=== PATIENT | female | born 1945 | race Caucasian/White ===

== ENCOUNTER 2016-07-15 12:02 | Observation (INO) ==
[2016-07-15] MEDS ORDERED: Ipratropium/Albuterol Neb 3 ML IH ONE (12:22)
--- NOTE | 2016-07-15 12:26 | Emergency Department Note ---
Disposition Clinical Impression: Cough Chest pain Qualifiers: Chest pain type: unspecified Qualified Code(s): R07.9 - Chest pain, unspecified Dyspnea Qualifiers: Dyspnea type: unspecified Qualified Code(s): R06.00 - Dyspnea, unspecified Disposition: Admitted As Inpatient Condition: Good Referrals: Karla Calhoun DO [Primary Care Provider] - Forms: ED Satisfaction Letter Time of Disposition: 15:21 URI/Sore Throat HPI - General Chief Complaint: ED Upper Respiratory Infection Stated Complaint: cough Time Seen by Provider: 07/15/16 12:16 Source: patient, family Mode of arrival: ambulatory Limitations: no limitations Nursing Notes Reviewed: Yes Vital Signs Reviewed: Yes - History of Present Illness HPI Narrative: A 71-year-old comes in with a cough that she's had since January. Patient has been seen at the urgent care several times been treated with antibiotics without improvement. No chest x-ray has been done. Patient saw her hearing aid mechanic that she sees for arrhythmia and was prescribed a beta gary.. No history of cigarette smoking. She describes a heaviness in her chest with the symptoms and she takes aspirin for that. Pt Subjective Complaint: cough Onset (ago): month(s) (Several) Duration: constant Severity: moderate Improves with: nothing Worsens with: nothing - Related Data Home Medications Medication Instructions Recorded Confirmed Amlodipine [Norvasc] 5 mg PO QPM 06/10/16 06/10/16 Diclofenac Sodium [Voltaren] 2 gm TP QID PRN 06/10/16 06/10/16 Meclizine HCl [Bonine] 25 mg PO DAILY PRN 06/10/16 06/10/16 Metoprolol XL (24 HR) Succ [Toprol 25 mg PO HS 06/10/16 06/10/16 XL] Allergies Allergy/AdvReac Type Severity Reaction Status Date / Time No Known Allergies Allergy Verified 07/15/16 12:09 Constitutional: Denies: fever, chills, weakness, weight change Eyes: Denies: eye pain, eye discharge, vision change ENT ED: Denies: ear pain, throat pain, dental pain, hearing loss, epistaxis, congestion, dysphagia Cardiovascular: Reports: chest pain (Heaviness in her chest). Denies: palpitations, dyspnea on exertion, edema, syncope Respiratory: Reports: cough. Denies: dyspnea, wheezes, hemoptysis, stridor Gastrointestinal: Denies: abdominal pain, nausea, vomiting, diarrhea, constipation, hematemesis, melena, hematochezia Genitourinary: Denies: dysuria, frequency, hematuria, discharge Musculoskeletal: Denies: back pain, neck pain, arthralgia, myalgia Integumentary: Denies: rash, abrasion, lesions Neurological: Denies: headache, weakness, numbness, paresthesias, confusion, abnormal gait, vertigo Psychiatric: Denies: anxiety, depression, suicidal thoughts, homicidal thoughts , auditory hallucinations, visual hallucinations Endocrine: Denies: fatigue Hematological/Lymphatic: Denies: easy bleeding, easy bruising Allergic/Immunologic: Denies: facial swelling, urticaria URI PMH - Past Medical History Medical history: Reports: arthritis, atrial fibrillation, hyperlipidemia, hypertension, osteoporosis Surgical history: Reports: no surgical history, hysterectomy Psychiatric history: Reports: no psych 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: Reports: no TRIMMER O[employer]ATOR [employer] history, 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 - Social History Smoking Status: Never smoker Alcohol use: Reports: none Drug use: Reports: none Physical Exam - General Limitations: no limitations General appearance: alert, in no apparent distress - Head Head exam: atraumatic, normocephalic, normal inspection - Eye Eye exam: Present: normal appearance, PERRL, EOMI - ENT ENT exam: normal exam, normal oropharynx, mucous membranes moist - Neck Neck exam: Present: normal inspection, full ROM, trachea midline - Chest Chest inspection: Present: normal inspection, symmetric chest wall rise - Respiratory Respiratory exam: Present: normal lung sounds bilaterally - Cardiovascular Cardiovascular exam: Present: regular rate - Abdominal Exam Abdominal exam: Present: soft, Non-Tender. Absent: tenderness, distention, guarding, rebound, rigidity - Extremities Exam Extremities exam: Present: normal inspection, full ROM. Absent: tenderness, pedal edema - Expanded Lower Extremity Exam Neurovascular/Tendon exam: Absent: motor deficit, sensory deficit, tendon deficit Gait: observed and normal - Back Exam Back exam: Present: normal inspection, full ROM. Absent: tenderness - Neurological Exam Neurological exam: Present: alert, oriented X3 - Psychiatric Psychiatric exam: Present: normal affect, normal mood - Skin Skin exam: Present: warm, dry, intact, normal color Course - Reevaluation(s) Reevaluation #1: His is a lady who comes in complaining of persistent cough dyspnea and heaviness in her chest. She's been evaluated at the urgent care a couple times given antibiotics without improvement. Some cardiac workup no stress test. Time: 15:20 - Consultations Consultation #1: Discussed with Dr. Corona, admit. Time: 15:21 Vital Signs Temperature 98.3 F 07/15/16 12:10 Pulse Rate 92 07/15/16 12:10 Respiratory Rate 22 07/15/16 12:10 Blood Pressure 176/93 07/15/16 12:10 O2 Sat by Pulse Oximetry 96 07/15/16 12:10 Temperature 98.3 F 07/15/16 12:10 Pulse Rate 69 07/15/16 14:19 Respiratory Rate 18 07/15/16 14:19 Blood Pressure 141/80 07/15/16 14:19 O2 Sat by Pulse Oximetry 96 07/15/16 14:19 Oxygen Delivery Oxygen Delivery Room Air Upper Respiratory Infection - Lab Data Lab results reviewed: Yes I reviewed the patient's lab results. Result diagrams: 07/15/16 13:09 07/15/16 13:09 Lab Results 07/15/16 07/15/16 07/15/16 Range/Units 13:09 13:09 13:09 WBC 8.9 (4.3-11.1) K/mcL RBC 4.31 (3.82-4.97) M/mcL Hgb 12.6 (11.5-15.4) g/dL Hct 37.7 (35.3-44.9) % MCV 87.5 (83.0-100.0) fL MCH 29.2 (28.0-33.3) pg MCHC 33.4 (31.6-35.5) g/dL RDW 13.3 (11.5-14.5) % Plt Count 137 L (140-400) K/mcL MPV 11.7 (9.4-12.4) fL Immature Gran % 0.7 (0-4) % Seg Neutrophils % 76.3 % Lymphocytes % 14.0 % Monocytes % 7.1 % Eosinophils % 1.7 % Basophils % 0.2 % Neutrophils # 6.8 (1.6-8.9) K/mcL Lymphocytes # 1.2 (0.6-4.6) K/mcL Monocytes # 0.6 (0.0-1.3) K/mcL Eosinophils # 0.2 (0.0-0.6) K/mcL Basophils # 0.0 (0.0-0.2) K/mcL Sodium 138 (136-145) mEq/L Potassium 3.0 L (3.5-4.5) mEq/L Chloride 103 (98-109) mEq/L Carbon Dioxide 24 (19-29) mEq/L BUN 14 (7-20) mg/dL Creatinine 0.74 (0.57-1.11) mg/dL Est GFR ( Amer) > 60 (> 60) Est GFR (Non-Af Amer) > 60 (> 60) BUN/Creatinine Ratio 19 (6-26) Glucose 145 H (70-99) mg/dL Calculated Osmolality 289 (280-300) Lactic Acid 2.3 H (0.5-2.2) mmol/L Calcium 8.8 (8.6-10.8) mg/dL Troponin I (0-0.03) ng/mL B-Natriuretic Peptide (0-100) pg/mL 07/15/16 07/15/16 Range/Units 13:09 13:09 WBC (4.3-11.1) K/mcL RBC (3.82-4.97) M/mcL Hgb (11.5-15.4) g/dL Hct (35.3-44.9) % MCV (83.0-100.0) fL MCH (28.0-33.3) pg MCHC (31.6-35.5) g/dL RDW (11.5-14.5) % Plt Count (140-400) K/mcL MPV (9.4-12.4) fL Immature Gran % (0-4) % Seg Neutrophils % % Lymphocytes % % Monocytes % % Eosinophils % % Basophils % % Neutrophils # (1.6-8.9) K/mcL Lymphocytes # (0.6-4.6) K/mcL Monocytes # (0.0-1.3) K/mcL Eosinophils # (0.0-0.6) K/mcL Basophils # (0.0-0.2) K/mcL Sodium (136-145) mEq/L Potassium (3.5-4.5) mEq/L Chloride (98-109) mEq/L Carbon Dioxide (19-29) mEq/L BUN (7-20) mg/dL Creatinine (0.57-1.11) mg/dL Est GFR ( Amer) (> 60) Est GFR (Non-Af Amer) (> 60) BUN/Creatinine Ratio (6-26) Glucose (70-99) mg/dL Calculated Osmolality (280-300) Lactic Acid (0.5-2.2) mmol/L Calcium (8.6-10.8) mg/dL Troponin I 0.00 (0-0.03) ng/mL B-Natriuretic Peptide 65 (0-100) pg/mL - Radiology Data Radiology results reviewed: Yes I reviewed the patient's radiology results. Chest X-Ray 07/15/16 12:22 IMPRESSION: 1. No acute pneumonia. 2. Redemonstration of a moderate hiatal hernia which in the setting of aspiration may account for a chronic cough. D/ / 07/15/2016 13:02:15 Jad Jacobo MD / jac Interpreting Provider: Jad Jacobo MD - EKG Data EKG attestation: Yes I reviewed and interpreted this EKG. EKG shows normal: sinus rhythm Rate: normal Rhythm: NSR Interpretation: no acute changes
[2016-07-15 13:21] LABS: Basophils % 0.2 %; Eosinophils # 0.2 K/mcL (0.0-0.6); Eosinophils % 1.7 %; Hematocrit 37.7 % (35.3-44.9); Hemoglobin 12.6 g/dL (11.5-15.4); Immature Granulocytes % 0.7 % (0-4); Lymphocytes # 1.2 K/mcL (0.6-4.6); Mean Corpuscular HGB Conc 33.4 g/dL (31.6-35.5); Mean Corpuscular Hemoglobin 29.2 pg (28.0-33.3); Mean Corpuscular Volume 87.5 fL (83.0-100.0); Mean Platelet Volume 11.7 fL (9.4-12.4); Monocytes # 0.6 K/mcL (0.0-1.3); Monocytes % 7.1 %; Neutrophils # 6.8 K/mcL (1.6-8.9); Platelet Count 137 K/mcL (140-400); Red Blood Count 4.31 M/mcL (3.82-4.97); Red Cell Distribution Width 13.3 % (11.5-14.5); Segmented Neutrophils % 76.3 %
[2016-07-15 13:34] LABS: BUN/Creatinine Ratio 19 (6-26); Blood Urea Nitrogen 14 mg/dL (7-20); Calcium 8.8 mg/dL (8.6-10.8); Carbon Dioxide 24 mEq/L (19-29); Chloride 103 mEq/L (98-109); Glucose 145 mg/dL (70-99); Osmolality,Calculated 289 (280-300); Sodium 138 mEq/L (136-145); eGFR For African Americans > 60 (> 60); eGFR For Non-African Americans > 60 (> 60)
[2016-07-15] MEDS ORDERED: Naloxone 0.4 MG/ML INJ IVP PRN (17:23)
[2016-07-15] MEDS: amLODIPine 5 MG TABLET PO SCH (18:28)
--- NOTE | 2016-07-15 19:49 | Electrocardiograph Report ---
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
[2016-07-15] MEDS: Ipratropium/Albuterol Neb 3 ML IH SCH ×2 (20:19→23:34)
[2016-07-15] MEDS: Metoprolol XL (24 HR) Succ 25 MG TAB.ER.24H PO SCH (22:25)
--- NOTE | 2016-07-16 00:48 | Internal Med History&Physical ---
Date of Encounter: 07/16/16 Time of Encounter: 16:30 Internal Medicine - H&P: HPI Chief complaint: cough Admitted From: Emergency Dept Plans for Post Hospital Care: Home History of present illness: Ms. Bright is a 71 year old female with hypertension, hyperlipidemia, arthritis, osteoporosis, and atrial fibrillation presented to the emergency department with cough and weakness. She reports she has had a cough and felt sick since January. She is then to multiple urgent cares and her primary care over the last several months and had several rounds of antibiotics and steroids for diagnosis of bronchitis. She reports the cough is productive, accompanied by sinus pressure and drainage, and headache. Recently last night she has had chest heaviness accompanying her cough she feels occasional dyspnea on exertion, occasional chills. She also reports some diarrhea on and off. She denies any lightheadedness, dizziness, palpitations. Evaluation in the ED included a chest xray which showed no acute pneumonia but showed a hiatal hernia , EKG that showed normal sinus rhythm, troponin was negative at 0.0, BNP was normal at 65, lactic acid was mildly elevated at 2.3, WBC count was normal at 8.9. On exam, she is alert and oriented, in no distress. lungs are clear to auscultation, heart has irregular rhythm. (1) Chest pain Patient reporting "chest heaviness" since last night. She is associating this with her cough. EKG showed NSR, initial troponin was negative. continuous cardiac cath rn serial troponins for trend (2) Cough She has had a productive cough since January with multiple rounds of antibiotics and steroids for bronchitis. CXR shows no acute pneumonia, but does demonstrate a hiatal hernia. She is satting high 90s on room air. Chronic bronchitis vs. GERD vs. allergies. Also may consider vasculitis Will get inflammatory markers. duoneb treatments QID mucinex BID Prilosec 20mg PO daily (3) Hypokalemia Potassium of 3.0 PO potassium chloride 20mEq Recheck chemistry in the morning. (4) DVT Prophylaxis encourage ambulation anti-embolic stockings Lovenox 40mg SQ Daily Past Med Surg Social Fam HX - Past Medical History Medical history: arthritis, atrial fibrillation, hyperlipidemia, hypertension, osteoporosis Psychiatric history: no psych history - Past Surgical History Surgical History: hysterectomy - Social History Smoking Status: Never smoker Smokeless Tobacco Status: No Alcohol use: none Drug use: none - Family History Mother Hx Family Cardiac Disorders: Yes Hx Family Neurologic Disorders: Yes Father Hx Family Cardiac Disorders: Yes Hx Family Neurologic Disorders: Yes Internal Medicine - H&P: Meds Amlodipine [Norvasc] 5 mg PO QPM 06/10/16 [History] Diclofenac Sodium [Voltaren] 2 gm TP QID PRN 06/10/16 [History] Meclizine HCl [Bonine] 25 mg PO DAILY PRN 06/10/16 [History] Metoprolol XL (24 HR) Succ [Toprol XL] 25 mg PO HS 06/10/16 [History] Allergies No Known Allergies Allergy (Verified 07/15/16 12:09) All Systems PM: A 10-system review of systems was performed and is negative for pertinent findings except as documented above in the HPI. - Constitutional Constitutional: chills, no fever(s), no night sweats - EENT Eyes: no change in vision, no discharge, no pain, no photophobia Ears: no ear discharge, no ear pain, no tinnitus Nose, mouth and throat: nasal congestion, nasal discharge, sinus pain, sinus pressure - Cardiovascular Cardiovascular ROS IM: dyspnea on exertion, no chest pain, no diaphoresis, no dyspnea, no lightheadedness, no palpitations, no syncope - Respiratory Respiratory: cough, dyspnea on exertion, excessive phlegm production - Gastrointestinal Gastrointestinal: no abdominal pain, no diarrhea, no hematemesis, no hematochezia, no melena, no nausea, no vomiting - Genitourinary Genitourinary: no change in urinary stream, no dysuria, no flank pain, no hematuria - Musculoskeletal Musculoskeletal ROS IM: no numbness, no tingling - Integumentary Integumentary IM: no rash, no unusual bruising - Neurological Neurological ROS: no confusion, no convulsions, no focal weakness, no numbness, no tingling, no tremor(s) - Hematologic/Lymphatic Hematologic/Lymphatic: no easy bruising - Constitutional Vitals: Temp Pulse Resp BP Pulse Ox 99.4 F 77 16 136/70 92 L 07/16/16 00:20 07/16/16 00:20 07/16/16 00:20 07/16/16 00:20 07/16/16 00:20 General appearance: Present: A&O X 3, no acute distress - Head Head exam: Present: atraumatic, normocephalic - Eye Eye exam: Present: PERRL, conjuntiva pink, sclera anicteric Pupils: Present: PERRL - Neck Neck exam general surgery: Present: supple, trachea midline. Absent: lymphadenopathy - Respiratory Respiratory exam: Present: CTAB. Absent: accessory muscle use, rales, rhonchi, wheezes - Cardiovascular Cardiovascular exam: Present: irregular rhythm, +S1, +S2. Absent: diastolic murmur, gallop, rubs, systolic murmur - GI/Abdominal GI/Abdominal exam: Present: normal bowel sounds, soft, no peritoneal signs. Absent: distended, tenderness - Extremities Exam Extremities exam: Present: warm, radial pulses palpable and symetrical. Absent : calf tenderness, cyanotic, pedal edema - Neurological Exam Neurological exam: Present: CN II-XII intact, oriented X3, no focal deficits. Absent: facial droop, speech deficit - Skin Skin exam: Present: dry, intact Internal Med - H&P Results - Labs CBC & Chem 7: 07/16/16 01:26 07/15/16 13:09 Labs: Cardiac Enzymes 07/15/16 Range/Units 18:40 Troponin I 0.01 (0-0.03) ng/mL All Lab Results (24 Hours) 07/15/16 07/15/16 07/15/16 Range/Units 13:09 13:09 13:09 WBC 8.9 (4.3-11.1) K/mcL RBC 4.31 (3.82-4.97) M/mcL Hgb 12.6 (11.5-15.4) g/dL Hct 37.7 (35.3-44.9) % MCV 87.5 (83.0-100.0) fL MCH 29.2 (28.0-33.3) pg MCHC 33.4 (31.6-35.5) g/dL RDW 13.3 (11.5-14.5) % Plt Count 137 L (140-400) K/mcL MPV 11.7 (9.4-12.4) fL Immature Gran % 0.7 (0-4) % Seg Neutrophils % 76.3 % Lymphocytes % 14.0 % Monocytes % 7.1 % Eosinophils % 1.7 % Basophils % 0.2 % Neutrophils # 6.8 (1.6-8.9) K/mcL Lymphocytes # 1.2 (0.6-4.6) K/mcL Monocytes # 0.6 (0.0-1.3) K/mcL Eosinophils # 0.2 (0.0-0.6) K/mcL Basophils # 0.0 (0.0-0.2) K/mcL Sodium 138 (136-145) mEq/L Potassium 3.0 L (3.5-4.5) mEq/L Chloride 103 (98-109) mEq/L Carbon Dioxide 24 (19-29) mEq/L BUN 14 (7-20) mg/dL Creatinine 0.74 (0.57-1.11) mg/dL Est GFR ( Amer) > 60 (> 60) Est GFR (Non-Af Amer) > 60 (> 60) BUN/Creatinine Ratio 19 (6-26) Glucose 145 H (70-99) mg/dL Calculated Osmolality 289 (280-300) Lactic Acid 2.3 H (0.5-2.2) mmol/L Calcium 8.8 (8.6-10.8) mg/dL Troponin I (0-0.03) ng/mL B-Natriuretic Peptide (0-100) pg/mL 07/15/16 07/15/16 07/15/16 Range/Units 13:09 13:09 18:40 WBC (4.3-11.1) K/mcL RBC (3.82-4.97) M/mcL Hgb (11.5-15.4) g/dL Hct (35.3-44.9) % MCV (83.0-100.0) fL MCH (28.0-33.3) pg MCHC (31.6-35.5) g/dL RDW (11.5-14.5) % Plt Count (140-400) K/mcL MPV (9.4-12.4) fL Immature Gran % (0-4) % Seg Neutrophils % % Lymphocytes % % Monocytes % % Eosinophils % % Basophils % % Neutrophils # (1.6-8.9) K/mcL Lymphocytes # (0.6-4.6) K/mcL Monocytes # (0.0-1.3) K/mcL Eosinophils # (0.0-0.6) K/mcL Basophils # (0.0-0.2) K/mcL Sodium (136-145) mEq/L Potassium (3.5-4.5) mEq/L Chloride (98-109) mEq/L Carbon Dioxide (19-29) mEq/L BUN (7-20) mg/dL Creatinine (0.57-1.11) mg/dL Est GFR ( Amer) (> 60) Est GFR (Non-Af Amer) (> 60) BUN/Creatinine Ratio (6-26) Glucose (70-99) mg/dL Calculated Osmolality (280-300) Lactic Acid (0.5-2.2) mmol/L Calcium (8.6-10.8) mg/dL Troponin I 0.00 0.01 (0-0.03) ng/mL B-Natriuretic Peptide 65 (0-100) pg/mL
[2016-07-16 01:38] LABS: Basophils % 0.2 %; Eosinophils # 0.1 K/mcL (0.0-0.6); Eosinophils % 1.7 %; Hemoglobin 11.6 g/dL (11.5-15.4); Immature Granulocytes % 0.4 % (0-4); Lymphocytes # 1.2 K/mcL (0.6-4.6); Lymphocytes % 13.7 %; Mean Corpuscular HGB Conc 33.1 g/dL (31.6-35.5); Mean Corpuscular Hemoglobin 29.1 pg (28.0-33.3); Mean Corpuscular Volume 87.7 fL (83.0-100.0); Mean Platelet Volume 11.9 fL (9.4-12.4); Monocytes # 0.6 K/mcL (0.0-1.3); Monocytes % 7.6 %; Neutrophils # 6.5 K/mcL (1.6-8.9); Platelet Count 125 K/mcL (140-400); Red Blood Count 3.99 M/mcL (3.82-4.97); Red Cell Distribution Width 13.4 % (11.5-14.5); Segmented Neutrophils % 76.4 %
[2016-07-16 01:53] LABS: BUN/Creatinine Ratio 20 (6-26); Blood Urea Nitrogen 13 mg/dL (7-20); Calcium 8.3 mg/dL (8.6-10.8); Carbon Dioxide 27 mEq/L (19-29); Chloride 101 mEq/L (98-109); Glucose 113 mg/dL (70-99); Osmolality,Calculated 285 (280-300); Potassium 2.9 mEq/L (3.5-4.5); Sodium 137 mEq/L (136-145); eGFR For African Americans > 60 (> 60); eGFR For Non-African Americans > 60 (> 60)
[2016-07-16] MEDS: Ipratropium/Albuterol Neb 3 ML IH SCH ×6 (03:45→23:36)
--- NOTE | 2016-07-16 04:49 | Event Note ---
Date of Encounter: 07/16/16 Time of Encounter: 04:44 Patient seen and examined with nurse practitioner. Patient presents with chronic cough for about 6 months suspect it is related to hiatal hernia. Other possibilities include postnasal drip. I will start the patient on Flonase nasal spray. She has increased nasal drainage so will give augmentin. PPI will be given 1st. She will need evaluation by gastroenterology. No evidence of pneumonia on x-ray
[2016-07-16] MEDS: *HR* Enoxaparin 40 MG/0.4 ML SYRINGE SQ SCH (06:44)
[2016-07-16] MEDS: Potassium Chloride Elixir 20 MEQ/15 ML UDC PO SCH ×2 (08:10→21:15)
[2016-07-16] MEDS: Fluticasone Propionate Nasal 50 MCG/SPRAY BOTTLE NS SCH (08:11)
[2016-07-16] MEDS: GuaiFENesin/Codeine Oral Soln 5 ML UDC PO PRN (13:15)
--- NOTE | 2016-07-16 17:04 | Internal Med Progress Note ---
Date of Encounter: 07/16/16 Time of Encounter: 09:00 - Subjective Interval history: Patient is a 71-year-old female admitted for persistent cough for 3 months, on and off, and chest heaviness. Her past medical history is significant for hyperlipidemia, attention, arthritis, osteoporosis, and A. fib patient was seen and examined. She is awake alert oriented 3. Denies chest pain, denies shortness of breath, still cough without sputum. Vitals are stable. Patient has 3 sets of troponin negative. Will also obtain chest CAT scan because of the cough lasts a long time. Patient has low potassium to 2.9. We will give potassium supplement. A/P: (1) Chest heaviness Patient reporting "chest heaviness" since last night. She is associating this with her cough. EKG showed NSR, 3 sets of troponin was negative. 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 CXR shows no acute pneumonia, but does demonstrate a hiatal hernia. She is satting high 90s on room air. Chronic bronchitis vs. GERD vs. allergies. CT scan of chest results unremarkable duoneb treatments QID mucinex BID Prilosec 20mg PO daily (3) Hypokalemia Potassium of 2.9 PO potassium choride 40mEq bid Recheck chemistry in the morning. (4) DVT Prophylaxis Heparin subcutaneously - Constitutional Vitals: Temp Pulse Resp BP Pulse Ox 98.7 F 97 16 163/89 93 L 07/16/16 15:28 07/16/16 15:28 07/16/16 15:28 07/16/16 15:28 07/16/16 15:28 General appearance: Present: A&O X 3, no acute distress - Head Head exam: Present: atraumatic, normocephalic - Eye Eye exam: Present: PERRL, conjuntiva pink, sclera anicteric Pupils: Present: PERRL - Neck Neck exam general surgery: Present: supple, trachea midline. Absent: lymphadenopathy - Respiratory Respiratory exam: Present: CTAB. Absent: accessory muscle use, rales, rhonchi, wheezes - Cardiovascular Cardiovascular exam: Present: RRR, +S1, +S2. Absent: diastolic murmur, gallop, rubs, systolic murmur - GI/Abdominal GI/Abdominal exam: Present: normal bowel sounds, soft, no peritoneal signs. Absent: distended, tenderness - Extremities Exam Extremities exam: Present: warm, radial pulses palpable and symetrical. Absent : calf tenderness, cyanotic, pedal edema - Neurological Exam Neurological exam: Present: CN II-XII intact, oriented X3, no focal deficits. Absent: pronater drift, facial droop, speech deficit - Skin Skin exam: Present: dry, intact Internal Medicine: Result - Labs CBC & Chem 7: 07/16/16 01:26 07/16/16 01:26 Labs: Short CBC 07/16/16 Range/Units 01:26 WBC 8.4 (4.3-11.1) K/mcL Hgb 11.6 (11.5-15.4) g/dL Hct 35.0 L (35.3-44.9) % Plt Count 125 L (140-400) K/mcL Neutrophils # 6.5 (1.6-8.9) K/mcL BMP 07/16/16 01:26 Sodium 137 Potassium 2.9 L Chloride 101 Carbon Dioxide 27 BUN 13 Creatinine 0.64 Glucose 113 H Calcium 8.3 L Cardiac Enzymes 07/15/16 07/16/16 Range/Units 18:40 01:26 Troponin I 0.01 0.00 (0-0.03) ng/mL - Impressions Impressions Chest CT 07/16/16 11:30 IMPRESSION: No acute process within the chest. Coronary atherosclerosis. Evidence of prior granulomatous disease. D/ / 07/16/2016 12:58:58 Jacob Paulson MD / [email or web address] Interpreting Provider: Jacob Paulson MD Consult Discharge Plan - Plan Referrals: Karla Calhoun DO [Primary Care Provider] -
[2016-07-16] MEDS: amLODIPine 5 MG TABLET PO SCH (17:27)
[2016-07-16] MEDS: Metoprolol XL (24 HR) Succ 25 MG TAB.ER.24H PO SCH (21:15)
[2016-07-17] MEDS: GuaiFENesin/Codeine Oral Soln 5 ML UDC PO PRN (01:13)
[2016-07-17] MEDS: Ipratropium/Albuterol Neb 3 ML IH SCH ×4 (03:42→11:02)
[2016-07-17] MEDS: *HR* Enoxaparin 40 MG/0.4 ML SYRINGE SQ SCH (05:23)
[2016-07-17 05:27] LABS: BUN/Creatinine Ratio 17 (6-26); Blood Urea Nitrogen 12 mg/dL (7-20); Calcium 8.7 mg/dL (8.6-10.8); Carbon Dioxide 26 mEq/L (19-29); Chloride 104 mEq/L (98-109); Glucose 112 mg/dL (70-99); Osmolality,Calculated 289 (280-300); Sodium 139 mEq/L (136-145); eGFR For African Americans > 60 (> 60); eGFR For Non-African Americans > 60 (> 60)
[2016-07-17 05:46] LABS: Potassium 4.2 mEq/L (3.5-4.5)
[2016-07-17 07:54] VITALS: BP 130/70
[2016-07-17] MEDS: Fluticasone Propionate Nasal 50 MCG/SPRAY BOTTLE NS SCH (08:50)
--- NOTE | 2016-07-17 10:08 | Discharge Summary ---
Date of Encounter: 07/17/16 Time of Encounter: 09:00 - Discharge Medications Prescriptions: GuaiFENesin/Codeine [ROBITUSSIN w/CODEINE] 10 ml PO Q6HR PRN #14 udc PRN Reason: Cough GuaiFENesin ER [Mucinex] 600 mg PO BID #30 tbbp.12hr Omeprazole [PriLOSEC] 20 mg PO DAILY@0630 #30 capsule. Home Medications: Amlodipine [Norvasc] 5 mg PO DAILY 06/10/16 [History] Metoprolol XL (24 HR) Succ [Toprol Xl] 25 mg PO DAILY 06/10/16 [History] GuaiFENesin ER [Mucinex] 600 mg PO BID #30 tbbp.12hr 07/17/16 [Rx] GuaiFENesin/Codeine [ROBITUSSIN w/CODEINE] 10 ml PO Q6HR PRN #14 udc 07/17/16 [ Rx] Omeprazole [PriLOSEC] 20 mg PO DAILY@0630 #30 capsule. 07/17/16 [Rx] Allergies/Adverse Reactions: Allergies No Known Allergies Allergy (Verified 07/15/16 12:09) Procedures/tests Complete & Pending: Procedures Performed prior 72 hours Category Date Time Status CT chest w/o contrast [CT chest wo con] [CT] Routine Cat Scan 07/16/16 11:30 Draft Date of admission: 07/15/16 15:30 Primary care physician: Vahid Sellers Discharging clinician: Panda Reed Anticipated date of discharge: 07/17/16 - Patient Status Disposition: Home, Self-Care Condition: Good Functional capacity at discharge: independent ambulation Overall status at discharge: patient is back to baseline - Discharge Instructions Follow Up With: Karla Calhoun DO [Primary Care Provider] - - Diet and Activity Activity: increase activity as tolerated Diet: low salt diet Interval History: Ms. Bright is a 71 year old female with hypertension, hyperlipidemia, arthritis, osteoporosis, and atrial fibrillation presented to the emergency department with cough and weakness. She reports she has had a cough and felt sick since January. She is then to multiple urgent cares and her primary care over the last several months and had several rounds of antibiotics and steroids for diagnosis of bronchitis. She reports the cough is productive, accompanied by sinus pressure and drainage, and headache. Recently last night she has had chest heaviness accompanying her cough she feels occasional dyspnea on exertion, occasional chills. She also reports some diarrhea on and off. She denies any lightheadedness, dizziness, palpitations. Evaluation in the ED included a chest xray which showed no acute pneumonia but showed a hiatal hernia , EKG that showed normal sinus rhythm, troponin was negative at 0.0, BNP was normal at 65, lactic acid was mildly elevated at 2.3, WBC count was normal at 8.9. On exam, she is alert and oriented, in no distress. lungs are clear to auscultation, heart has irregular rhythm. Hospital course: Ms. Bright is a 71 year old female admitted for persistent cough and chest congestion. She was placed on cardiac monitoring and tracked troponin. Three sets of troponin negative. Pt denies chest pain. Chest CT was done, result unremarkable. CXR shows hiatal hernia, otherwise unremarkable. Pt is not on any ACEI. Other differential diagnosis may include postnasal drip, GERD, asthma, ect. Pt is clinically stable now, discuss with pt, she need continue to follow her PCP and may need to refer to pulmonary for chronic cough workup as outpatient. Pt verbalized understanding and agree the plan. Pt has hypokalemia on admission, which was corrected after supplement. I saw and examined pt today, she is awake, alert, oriented x 3, in no acute distress, c/o cough with minimal sputum, no fever, vitals stable, no chest pain or SOB, no nausea, no vomiting. Will D/C pt home. Prescribe cough syrup and try PPI for possible GERD since pt has hiatal hernia. Pt need to f/u with PCP as outpatient. - Time Spent with Patient Total time spent providing and/or coordinating discharge services: 40 minutes Greater than 30 minutes - Constitutional Vitals: Temp Pulse Resp BP Pulse Ox 96.6 F L 72 20 130/70 92 L 07/17/16 07:51 07/17/16 07:51 07/17/16 07:51 07/17/16 07:51 07/17/16 07:51 General appearance: Present: A&O X 3, no acute distress, answers questions appropriately - Head Head exam: Present: atraumatic, normocephalic - Eye Eye exam: Present: PERRL, conjuntiva pink, sclera anicteric Pupils: Present: PERRL - Neck Neck exam general surgery: Present: supple, trachea midline. Absent: lymphadenopathy - Respiratory Respiratory exam: Present: CTAB. Absent: accessory muscle use, rales, rhonchi, wheezes - Cardiovascular Cardiovascular exam: Present: RRR, +S1, +S2. Absent: diastolic murmur, gallop, rubs, systolic murmur - GI/Abdominal GI/Abdominal exam: Present: normal bowel sounds, soft, no peritoneal signs. Absent: distended, tenderness - Extremities Exam Extremities exam: Present: warm, radial pulses palpable and symetrical. Absent : calf tenderness, cyanotic, pedal edema - Neurological Exam Neurological exam: Present: CN II-XII intact, oriented X3, no focal deficits. Absent: pronater drift, facial droop, speech deficit - Skin Skin exam: Present: dry, intact
== END 2016-07-17 11:06 | disposition home or self-care (01) ==
LOC: 3BNU 12:02 → EMEROO 12:02 → SUATTDRO 15:30 → 3BNU 16:10
PROVIDERS: ADMIT Nurse Practitioner Family; ATTEND Internal Medicine

== ENCOUNTER 2018-11-26 16:12 | Observation (INO) ==
--- NOTE | 2018-11-26 17:02 | Emergency Department Note ---
Disposition Clinical Impression: Anemia Qualifiers: Anemia type: iron deficiency Iron deficiency anemia type: unspecified iron deficiency Qualified Code(s): D50.9 - Iron deficiency anemia, unspecified Disposition: Admitted As Inpatient Referrals: Karla Calhoun DO [Primary Care Provider] - Forms: ED Satisfaction Letter Time of Disposition: 18:39 General Adult HPI - General Chief complaint: ED Recheck/Abnormal Lab/Rx Stated complaint: Abnormal Labs Low Hemoglobin Time Seen by Provider: 11/26/18 16:35 Source: patient Limitations: no limitations Nursing Notes Reviewed: Yes Vital Signs Reviewed: Yes - History of Present Illness HPI Narrative: 73-year-old female presents emergency Department concern from her primary care provider and that she was anemic. Patient had hemoglobin of in the mid 5 range today. Patient reports ever since August, she has had increasing dyspnea on exertion. States that she has been very short of breath. Cannot walk long distances at all. It was most prominent in a recent vacation. Patient denies any hemoptysis, hematemesis, melenic stool, she does report some mild right red blood per rectum on occasion, but not consistently. Patient denies any fevers, chest pain, abdominal pain. She denies being on a blood thinning medication. She does take 81 mg aspirin daily. Pain Scale: 0 - Related Data Home Medications Medication Instructions Recorded Confirmed Metoprolol XL (24 HR) Succ [Toprol 25 mg PO DAILY 06/10/16 07/16/16 Xl] amLODIPine [Norvasc] 5 mg PO DAILY 06/10/16 07/16/16 Previous Rx's Medication Instructions Recorded GuaiFENesin ER [Mucinex] 600 mg PO BID #30 tbbp.12hr 07/17/16 GuaiFENesin/Codeine [ROBITUSSIN 10 ml PO Q6HR PRN #14 udc 07/17/16 w/CODEINE] Omeprazole [PriLOSEC] 20 mg PO DAILY@0630 #30 capsule. 07/17/16 Allergies Allergy/AdvReac Type Severity Reaction Status Date / Time No Known Allergies Allergy Verified 07/15/16 12:09 All systems ED: reviewed and negative except as stated. Review of Systems: As Per HPI Constitutional: Denies: fever Cardiovascular: Denies: chest pain Respiratory: Reports: dyspnea Gastrointestinal: Denies: abdominal pain, nausea, vomiting Genitourinary: Denies: urgency, dysuria Musculoskeletal: Denies: back pain Past Medical History - Past Medical History Attestation: Yes The following information was validated with the patient. 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 Absent: respiratory distress, accessory muscle use - Cardiovascular Cardiovascular exam: Present: regular rate, normal rhythm, normal heart sounds - Abdominal Exam Abdominal exam: Present: soft, Non-Tender. Absent: distention, guarding, rebound, rigidity - Extremities Exam Extremities exam: Present: normal capillary refill - Back Exam Back exam: Present: full ROM - Neurological Exam Neurological exam: Present: alert, oriented X3 - Psychiatric Psychiatric exam: Present: normal affect, normal mood - Skin Skin exam: Present: warm, dry, intact, normal color. Absent: rash, pallor Course Vital Signs Temperature 97.9 F 11/26/18 16:17 Pulse Rate 91 11/26/18 16:17 Respiratory Rate 18 11/26/18 16:17 Blood Pressure 196/95 11/26/18 16:17 O2 Sat by Pulse Oximetry 99 11/26/18 16:17 Temperature 97.9 F 11/26/18 16:17 Pulse Rate 82 11/26/18 16:56 Respiratory Rate 14 11/26/18 16:56 Blood Pressure 170/75 11/26/18 16:56 O2 Sat by Pulse Oximetry 100 11/26/18 16:56 Oxygen Delivery Oxygen Delivery Room Air Medical Decision Making - MDM Narrative Medical decision making narrative: 73-year-old female presents emergency department with concern for anemia. Patient is symptomatic as she is very short of breath. Hemoglobin was low. Patient was transfused 2 units in the emergency department. Patient admitted for further evaluation. No active bleeding from anywhere. Hemoccult was negative. Patient stable time of admission. - Lab Data Result diagrams: 11/26/18 16:45 11/26/18 16:45 Lab Results 11/26/18 11/26/18 11/26/18 Range/Units 16:45 16:45 16:45 WBC 3.7 L (4.3-11.1) K/mcL RBC 3.29 L (3.82-4.97) M/mcL Hgb 5.9 L* (11.5-15.4) g/dL Hct 22.7 L (35.3-44.9) % MCV 69.0 L (83.0-100.0) fL MCH 17.9 L (28.0-33.3) pg MCHC 26.0 L (31.6-35.5) g/dL RDW 17.5 H (11.5-14.5) % Plt Count 170 (140-400) K/mcL MPV 10.4 (9.4-12.4) fL Immature Gran % 0.3 (0-4) % Seg Neutrophils % 62.3 % Lymphocytes % 26.6 % Monocytes % 8.1 % Eosinophils % 2.4 % Basophils % 0.3 % Neutrophils # 2.3 (1.6-8.9) K/mcL Lymphocytes # 1.0 (0.6-4.6) K/mcL Monocytes # 0.3 (0.0-1.3) K/mcL Eosinophils # 0.1 (0.0-0.6) K/mcL Basophils # 0.0 (0.0-0.2) K/mcL Hypochromasia Present A (Not Present) Microcytosis Present A (Not Present) PT 10.4 (9.4-12.1) Seconds INR 0.9 APTT 28.4 (26.0-36.0) Seconds Sodium 138 (136-145) mEq/L Potassium 3.7 (3.5-5.1) mEq/L Chloride 105 (98-107) mEq/L Carbon Dioxide 25 (23-29) mEq/L BUN 19 (8-23) mg/dL Creatinine 0.69 (0.60-1.20) mg/dL Est GFR ( Amer) > 60 (> 60) Est GFR (Non-Af Amer) > 60 (> 60) BUN/Creatinine Ratio 28 H (6-26) Glucose 131 H (70-105) mg/dL Calculated Osmolality 290 (280-300) Calcium 9.2 (8.6-10.3) mg/dL Total Bilirubin 0.3 (0.3-1.0) mg/dL Direct Bilirubin 0.1 (0.0-0.2) mg/dL Indirect Bilirubin 0.2 (0.0-1.2) mg/dL AST 16 (13-39) Units/L ALT 11 (7-52) Units/L Alkaline Phosphatase 57 (34-104) Units/L Serum Total Protein 6.5 (6.4-8.9) g/dL Albumin 4.4 (3.5-5.7) g/dL Globulin 2.1 L (2.4-3.5) g/dL Albumin/Globulin Ratio 2.1 (1.1-2.2) Urine Color (Yellow) Urine Clarity (Clear) Urine pH (5.0-8.0) pH Units Ur Specific [place] (1.010-1.025) Urine Protein (Neg-Trace) mg/dL Urine Glucose (UA) (Normal) mg/dL Urine Ketones (Negative) mg/dL Urine Blood (Negative) Urine Nitrite (Negative) Urine Bilirubin (Negative) Urine Urobilinogen (Normal) mg/dL Ur Leukocyte Esterase (Negative) Ur Culture Indicated? (NO) Stool Occult Bld Scrn (Negative) Blood Type Antibody Screen Crossmatch 11/26/18 11/26/18 11/26/18 Range/Units 16:45 17:45 17:45 WBC (4.3-11.1) K/mcL RBC (3.82-4.97) M/mcL Hgb (11.5-15.4) g/dL Hct (35.3-44.9) % MCV (83.0-100.0) fL MCH (28.0-33.3) pg MCHC (31.6-35.5) g/dL RDW (11.5-14.5) % Plt Count (140-400) K/mcL MPV (9.4-12.4) fL Immature Gran % (0-4) % Seg Neutrophils % % Lymphocytes % % Monocytes % % Eosinophils % % Basophils % % Neutrophils # (1.6-8.9) K/mcL Lymphocytes # (0.6-4.6) K/mcL Monocytes # (0.0-1.3) K/mcL Eosinophils # (0.0-0.6) K/mcL Basophils # (0.0-0.2) K/mcL Hypochromasia (Not Present) Microcytosis (Not Present) PT (9.4-12.1) Seconds INR APTT (26.0-36.0) Seconds Sodium (136-145) mEq/L Potassium (3.5-5.1) mEq/L Chloride (98-107) mEq/L Carbon Dioxide (23-29) mEq/L BUN (8-23) mg/dL Creatinine (0.60-1.20) mg/dL Est GFR ( Amer) (> 60) Est GFR (Non-Af Amer) (> 60) BUN/Creatinine Ratio (6-26) Glucose (70-105) mg/dL Calculated Osmolality (280-300) Calcium (8.6-10.3) mg/dL Total Bilirubin (0.3-1.0) mg/dL Direct Bilirubin (0.0-0.2) mg/dL Indirect Bilirubin (0.0-1.2) mg/dL AST (13-39) Units/L ALT (7-52) Units/L Alkaline Phosphatase (34-104) Units/L Serum Total Protein (6.4-8.9) g/dL Albumin (3.5-5.7) g/dL Globulin (2.4-3.5) g/dL Albumin/Globulin Ratio (1.1-2.2) Urine Color Yellow (Yellow) Urine Clarity Clear (Clear) Urine pH 6.0 (5.0-8.0) pH Units Ur Specific [place] > 1.030 H (1.010-1.025) Urine Protein Trace (Neg-Trace) mg/dL Urine Glucose (UA) Normal (Normal) mg/dL Urine Ketones Negative (Negative) mg/dL Urine Blood Negative (Negative) Urine Nitrite Negative (Negative) Urine Bilirubin Negative (Negative) Urine Urobilinogen Normal (Normal) mg/dL Ur Leukocyte Esterase Negative (Negative) Ur Culture Indicated? NO (NO) Stool Occult Bld Scrn Negative (Negative) Blood Type O POSITIVE Antibody Screen NEGATIVE Crossmatch See Detail - EKG Data EKG #1 EKG attestation: Yes I reviewed and interpreted this EKG. EKG results narrative: 17:25 Heart rate 74 bpm, MO interval 166 ms, QRS duration 81 ms, QT 388 ms, normal axis. Sinus rhythm with no ischemic ST changes. Nonspecific T-wave flattening in aVL.
[2018-11-26 17:03] LABS: Basophils % 0.3 %
[2018-11-26 17:04] LABS: Eosinophils # 0.1 K/mcL (0.0-0.6); Eosinophils % 2.4 %; Hematocrit 22.7 % (35.3-44.9); Immature Granulocytes % 0.3 % (0-4); Lymphocytes % 26.6 %; Mean Corpuscular Hemoglobin 17.9 pg (28.0-33.3); Mean Platelet Volume 10.4 fL (9.4-12.4); Monocytes # 0.3 K/mcL (0.0-1.3); Monocytes % 8.1 %; Neutrophils # 2.3 K/mcL (1.6-8.9); Platelet Count 170 K/mcL (140-400); Red Blood Count 3.29 M/mcL (3.82-4.97); Red Cell Distribution Width 17.5 % (11.5-14.5); Segmented Neutrophils % 62.3 %; White Blood Count 3.7 K/mcL (4.3-11.1)
[2018-11-26 17:12] LABS: Hemoglobin 5.9 g/dL (11.5-15.4); INR 0.9; Prothrombin Time 10.4 Seconds (9.4-12.1)
[2018-11-26 17:15] LABS: Activated Partial Thrombo Time 28.4 Seconds (26.0-36.0)
[2018-11-26 17:24] LABS: BUN/Creatinine Ratio 28 (6-26); Blood Urea Nitrogen 19 mg/dL (8-23); Calcium 9.2 mg/dL (8.6-10.3); Carbon Dioxide 25 mEq/L (23-29); Chloride 105 mEq/L (98-107); Glucose 131 mg/dL (70-105); Osmolality,Calculated 290 (280-300); Potassium 3.7 mEq/L (3.5-5.1); Sodium 138 mEq/L (136-145); eGFR For African Americans > 60 (> 60); eGFR For Non-African Americans > 60 (> 60)
[2018-11-26 17:25] LABS: Hypochromasia Present (Not Present); Microcytosis Present (Not Present)
[2018-11-26 17:58] LABS: Alanine Aminotransferase 11 Units/L (7-52); Albumin 4.4 g/dL (3.5-5.7); Albumin/Globulin Ratio 2.1 (1.1-2.2); Alkaline Phosphatase 57 Units/L (34-104); Aspartate Amino Transferase 16 Units/L (13-39); Bilirubin,Direct 0.1 mg/dL (0.0-0.2); Bilirubin,Indirect 0.2 mg/dL (0.0-1.2); Bilirubin,Total 0.3 mg/dL (0.3-1.0); Globulin 2.1 g/dL (2.4-3.5); Total Protein 6.5 g/dL (6.4-8.9)
[2018-11-26 18:00] LABS: Bilirubin,Urine Negative (Negative); Blood,Urine Negative (Negative); Clarity,Urine Clear (Clear); Color,Urine Yellow (Yellow); Glucose,Urine (UA) Normal (Normal); Ketones,Urine Negative (Negative); Leukocyte Esterase,Urine Negative (Negative); Nitrite,Urine Negative (Negative); Protein,Urine Trace mg/dL (Neg-Trace); Specific Gravity,Urine > 1.030 (1.010-1.025); Urobilinogen,Urine Normal (Normal)
--- NOTE | 2018-11-26 18:14 | Emergency Department Note ---
Disposition Clinical Impression: Anemia Qualifiers: Anemia type: iron deficiency Iron deficiency anemia type: unspecified iron deficiency Qualified Code(s): D50.9 - Iron deficiency anemia, unspecified Disposition: Admitted As Inpatient Condition: Good Referrals: Karla Calhoun DO [Primary Care Provider] - Forms: ED Satisfaction Letter Time of Disposition: 18:14 General Adult HPI - General Chief complaint: ED Recheck/Abnormal Lab/Rx Stated complaint: Abnormal Labs Low Hemoglobin Time Seen by Provider: 11/26/18 16:35 Source: patient Limitations: no limitations - History of Present Illness Pain Scale: 0 - Related Data Home Medications Medication Instructions Recorded Confirmed Metoprolol XL (24 HR) Succ [Toprol 25 mg PO DAILY 06/10/16 07/16/16 Xl] amLODIPine [Norvasc] 5 mg PO DAILY 06/10/16 07/16/16 Previous Rx's Medication Instructions Recorded GuaiFENesin ER [Mucinex] 600 mg PO BID #30 tbbp.12hr 07/17/16 GuaiFENesin/Codeine [ROBITUSSIN 10 ml PO Q6HR PRN #14 udc 07/17/16 w/CODEINE] Omeprazole [PriLOSEC] 20 mg PO DAILY@0630 #30 capsule.dr 07/17/16 Allergies Allergy/AdvReac Type Severity Reaction Status Date / Time No Known Allergies Allergy Verified 07/15/16 12:09 Past Medical History - Past Medical History Medical history: Reports: arthritis, atrial fibrillation, hyperlipidemia, hypertension, osteoporosis Surgical history: Reports: hysterectomy Psychiatric history: Reports: no psych history 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, 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 - Social History Smoking Status: Unknown if ever smoked Smokeless Tobacco Status: No Alcohol use: Reports: none Drug use: Reports: none Physical Exam - General Limitations: no limitations General appearance: alert, in no apparent distress Course Vital Signs Temperature 97.9 F 11/26/18 16:17 Pulse Rate 91 11/26/18 16:17 Respiratory Rate 18 11/26/18 16:17 Blood Pressure 196/95 11/26/18 16:17 O2 Sat by Pulse Oximetry 99 11/26/18 16:17 Temperature 97.9 F 11/26/18 16:17 Pulse Rate 82 11/26/18 16:56 Respiratory Rate 14 11/26/18 16:56 Blood Pressure 170/75 11/26/18 16:56 O2 Sat by Pulse Oximetry 100 11/26/18 16:56 Oxygen Delivery Oxygen Delivery Room Air Medical Decision Making - Lab Data Result diagrams: 11/26/18 16:45 11/26/18 16:45 Lab Results 11/26/18 11/26/18 11/26/18 Range/Units 16:45 16:45 16:45 WBC 3.7 L (4.3-11.1) K/mcL RBC 3.29 L (3.82-4.97) M/mcL Hgb 5.9 L* (11.5-15.4) g/dL Hct 22.7 L (35.3-44.9) % MCV 69.0 L (83.0-100.0) fL MCH 17.9 L (28.0-33.3) pg MCHC 26.0 L (31.6-35.5) g/dL RDW 17.5 H (11.5-14.5) % Plt Count 170 (140-400) K/mcL MPV 10.4 (9.4-12.4) fL Immature Gran % 0.3 (0-4) % Seg Neutrophils % 62.3 % Lymphocytes % 26.6 % Monocytes % 8.1 % Eosinophils % 2.4 % Basophils % 0.3 % Neutrophils # 2.3 (1.6-8.9) K/mcL Lymphocytes # 1.0 (0.6-4.6) K/mcL Monocytes # 0.3 (0.0-1.3) K/mcL Eosinophils # 0.1 (0.0-0.6) K/mcL Basophils # 0.0 (0.0-0.2) K/mcL Hypochromasia Present A (Not Present) Microcytosis Present A (Not Present) PT 10.4 (9.4-12.1) Seconds INR 0.9 APTT 28.4 (26.0-36.0) Seconds Sodium 138 (136-145) mEq/L Potassium 3.7 (3.5-5.1) mEq/L Chloride 105 (98-107) mEq/L Carbon Dioxide 25 (23-29) mEq/L BUN 19 (8-23) mg/dL Creatinine 0.69 (0.60-1.20) mg/dL Est GFR ( Amer) > 60 (> 60) Est GFR (Non-Af Amer) > 60 (> 60) BUN/Creatinine Ratio 28 H (6-26) Glucose 131 H (70-105) mg/dL Calculated Osmolality 290 (280-300) Calcium 9.2 (8.6-10.3) mg/dL Total Bilirubin 0.3 (0.3-1.0) mg/dL Direct Bilirubin 0.1 (0.0-0.2) mg/dL Indirect Bilirubin 0.2 (0.0-1.2) mg/dL AST 16 (13-39) Units/L ALT 11 (7-52) Units/L Alkaline Phosphatase 57 (34-104) Units/L Serum Total Protein 6.5 (6.4-8.9) g/dL Albumin 4.4 (3.5-5.7) g/dL Globulin 2.1 L (2.4-3.5) g/dL Albumin/Globulin Ratio 2.1 (1.1-2.2) Urine Color (Yellow) Urine Clarity (Clear) Urine pH (5.0-8.0) pH Units Ur Specific [place] (1.010-1.025) Urine Protein (Neg-Trace) mg/dL Urine Glucose (UA) (Normal) mg/dL Urine Ketones (Negative) mg/dL Urine Blood (Negative) Urine Nitrite (Negative) Urine Bilirubin (Negative) Urine Urobilinogen (Normal) mg/dL Ur Leukocyte Esterase (Negative) Ur Culture Indicated? (NO) Stool Occult Bld Scrn (Negative) Blood Type Antibody Screen Crossmatch 11/26/18 11/26/18 11/26/18 Range/Units 16:45 17:45 17:45 WBC (4.3-11.1) K/mcL RBC (3.82-4.97) M/mcL Hgb (11.5-15.4) g/dL Hct (35.3-44.9) % MCV (83.0-100.0) fL MCH (28.0-33.3) pg MCHC (31.6-35.5) g/dL RDW (11.5-14.5) % Plt Count (140-400) K/mcL MPV (9.4-12.4) fL Immature Gran % (0-4) % Seg Neutrophils % % Lymphocytes % % Monocytes % % Eosinophils % % Basophils % % Neutrophils # (1.6-8.9) K/mcL Lymphocytes # (0.6-4.6) K/mcL Monocytes # (0.0-1.3) K/mcL Eosinophils # (0.0-0.6) K/mcL Basophils # (0.0-0.2) K/mcL Hypochromasia (Not Present) Microcytosis (Not Present) PT (9.4-12.1) Seconds INR APTT (26.0-36.0) Seconds Sodium (136-145) mEq/L Potassium (3.5-5.1) mEq/L Chloride (98-107) mEq/L Carbon Dioxide (23-29) mEq/L BUN (8-23) mg/dL Creatinine (0.60-1.20) mg/dL Est GFR ( Amer) (> 60) Est GFR (Non-Af Amer) (> 60) BUN/Creatinine Ratio (6-26) Glucose (70-105) mg/dL Calculated Osmolality (280-300) Calcium (8.6-10.3) mg/dL Total Bilirubin (0.3-1.0) mg/dL Direct Bilirubin (0.0-0.2) mg/dL Indirect Bilirubin (0.0-1.2) mg/dL AST (13-39) Units/L ALT (7-52) Units/L Alkaline Phosphatase (34-104) Units/L Serum Total Protein (6.4-8.9) g/dL Albumin (3.5-5.7) g/dL Globulin (2.4-3.5) g/dL Albumin/Globulin Ratio (1.1-2.2) Urine Color Yellow (Yellow) Urine Clarity Clear (Clear) Urine pH 6.0 (5.0-8.0) pH Units Ur Specific [place] > 1.030 H (1.010-1.025) Urine Protein Trace (Neg-Trace) mg/dL Urine Glucose (UA) Normal (Normal) mg/dL Urine Ketones Negative (Negative) mg/dL Urine Blood Negative (Negative) Urine Nitrite Negative (Negative) Urine Bilirubin Negative (Negative) Urine Urobilinogen Normal (Normal) mg/dL Ur Leukocyte Esterase Negative (Negative) Ur Culture Indicated? NO (NO) Stool Occult Bld Scrn Negative (Negative) Blood Type O POSITIVE Antibody Screen NEGATIVE Crossmatch See Detail Attestation Statement - Attestation Attestation: I reviewed the residents documentation and agree with the residents assessment and plan of care. I have personally had face to face time with the patient. (Brief History, Brief Exam, and MDM) I personally supervised and was present for the chandler/critical portions of the following procedures completed by the resident: eKG 73 year old female presents to the ED with complaints of low hgb. Patient has hgb of 5.9 and it appers it is likely iron defeciency related. hemoccult negative. Transfusion has started for 2 units. admitted to medicine by Dr Jain.
[2018-11-26] MEDS ORDERED: Acetaminophen 325 MG TABLET PO PRN (20:14)
[2018-11-26] MEDS ORDERED: Naloxone 0.4 MG/ML INJ IVP PRN (20:14)
--- NOTE | 2018-11-26 20:14 | Internal Med History&Physical ---
Date of Encounter: 11/26/18 Time of Encounter: 20:09 Internal Medicine - H&P: HPI Chief complaint: fatigue Admitted From: Home Plans for Post Hospital Care: Home History of present illness: Ms. Bright is a 73 year old female with past medical history of arthritis, HTN who presents with feeling tired since August 2018. Pt states she is unaware of prior history of iron deficiency anemia. 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 She also states she was anemic during an infection she had at age 57 years old. She denies chest pain but does report feeling SOB. Parents Father: HTN Mother: HTN In ED stool occult was noted as negative RBC 3.7, Hgb 5.9, Hct 22.7, plt 170. PT 10.4, INR 0.9 BMP reviewed, glucose 131 UA negative for infectious process. CODE STATUS FULL Past Med Surg Social Fam HX - Past Medical History Medical history: arthritis, atrial fibrillation, hyperlipidemia, hypertension, osteoporosis Psychiatric history: no psych history - Past Surgical History Surgical History: hysterectomy Additional surgical history: back surgery. knee scopes. nose surgery - Social History Smoking Status: Unknown if ever smoked Smokeless Tobacco Status: No Alcohol use: none Drug use: none - Family History Mother Hx Family Cardiac Disorders: Yes Hx Family Neurologic Disorders: Yes Father Hx Family Cardiac Disorders: Yes Hx Family Neurologic Disorders: Yes Internal Medicine - H&P: Meds Metoprolol XL (24 HR) Succ [Toprol Xl] 12.5 mg PO BID 06/10/16 [History] Hydroxyzine HCl 10 mg PO PRN PRN 11/26/18 [History] Losartan Potassium 25 mg PO DAILY 11/26/18 [History] Allergy/AdvReac Type Severity Reaction Status Date / Time No Known Allergies Allergy Verified 07/15/16 12:09 All Systems PM: A 10-system review of systems was performed and is negative for pertinent findings except as documented above in the HPI. - Constitutional Vitals: Temp Pulse Resp BP Pulse Ox 97.9 F 85 16 176/85 100 11/26/18 16:17 11/26/18 19:02 11/26/18 19:56 11/26/18 19:56 11/26/18 19:02 General appearance: Present: A&O X 3, no acute distress Exam: . - Head Head exam: Present: atraumatic, normocephalic - Eye Eye exam: Present: PERRL, conjuntiva pink, sclera anicteric Pupils: Present: PERRL - Neck Neck exam general surgery: Present: supple, trachea midline. Absent: lymphadenopathy - Respiratory Respiratory exam: Present: CTAB. Absent: accessory muscle use, rales, rhonchi, wheezes - Cardiovascular Cardiovascular exam: Present: RRR, +S1, +S2. Absent: diastolic murmur, gallop, rubs, systolic murmur - GI/Abdominal GI/Abdominal exam: Present: normal bowel sounds, soft, no peritoneal signs. Absent: distended, tenderness - Extremities Exam Extremities exam: Present: warm, radial pulses palpable and symmetrical. Absent: calf tenderness, cyanotic, pedal edema - Neurological Exam Neurological exam: Present: CN II-XII intact, oriented X3, no focal deficits. Absent: pronater drift, facial droop, speech deficit - Skin Skin exam: Present: dry, intact Internal Med - H&P Results - Labs CBC & Chem 7: 11/26/18 16:45 11/26/18 16:45 Labs: Short CBC 11/26/18 Range/Units 16:45 WBC 3.7 L (4.3-11.1) K/mcL Hgb 5.9 L* (11.5-15.4) g/dL Hct 22.7 L (35.3-44.9) % Plt Count 170 (140-400) K/mcL Neutrophils # 2.3 (1.6-8.9) K/mcL BMP 11/26/18 16:45 Sodium 138 Potassium 3.7 Chloride 105 Carbon Dioxide 25 BUN 19 Creatinine 0.69 Glucose 131 H Calcium 9.2 Liver Function 11/26/18 Range/Units 16:45 Total Bilirubin 0.3 (0.3-1.0) mg/dL Direct Bilirubin 0.1 (0.0-0.2) mg/dL AST 16 (13-39) Units/L ALT 11 (7-52) Units/L Alkaline Phosphatase 57 (34-104) Units/L Albumin 4.4 (3.5-5.7) g/dL Urine 11/26/18 Range/Units 17:45 Urine Color Yellow (Yellow) Urine Clarity Clear (Clear) Urine pH 6.0 (5.0-8.0) pH Units Ur Specific [place] > 1.030 H (1.010-1.025) Urine Protein Trace (Neg-Trace) mg/dL Urine Glucose (UA) Normal (Normal) mg/dL - Assessment and Plan (1) Anemia Current Visit: Yes Status: Acute Assessment and plan: Severe microcytic anemia. Likely chronic anemia. Pt states she has been feeling fatigued since August 2018. Pt on ASA daily. Stool occult blood negative. Will check iron studies, ferritin, Folate, and vitamin B 12 levels. 2 units PRBC units of blood ordered in ED.Will recheck CBC in am. She reports SOB but denies having any chest pain. Qualifiers: Anemia type: iron deficiency Iron deficiency anemia type: unspecified iron deficiency Qualified Code(s): D50.9 - Iron deficiency anemia, unspecified (2) Dyspnea Current Visit: No Status: Acute Assessment and plan: Oxygen 2L NC for now. Keep SpO2 > 90% Qualifiers: Dyspnea type: unspecified Qualified Code(s): R06.00 - Dyspnea, unspecified (3) HTN (hypertension) Current Visit: Yes Status: Acute Assessment and plan: BP elevated at 185/77. Resume home Losartan and BB. Will order Hydralazine PRN Qualifiers: Qualified Code(s): I10 - Essential (primary) hypertension - Time Spent With Patient Total time spent is greater than 50% in coordination of care (as documented) at patient's floor/unit and/or counseling patient: less than 15 minutes
[2018-11-26] MEDS ORDERED: 0.9 % Sodium Chloride 500 ML ONE (20:32)
[2018-11-26] MEDS: Metoprolol XL (24 HR) Succ 25 MG TAB.ER.24H PO SCH (21:30)
[2018-11-26] MEDS ORDERED: *HR* LORazepam 0.5 MG TABLET PO ONE (21:40)
[2018-11-26] MEDS ORDERED: 0.9 % Sodium Chloride 250 ML ONE (23:38)
[2018-11-27 07:42] LABS: Basophils % 0.7 %; Immature Granulocytes % 0.2 % (0-4); Red Cell Distribution Width 20.2 % (11.5-14.5)
[2018-11-27 07:44] LABS: BUN/Creatinine Ratio 18 (6-26); Blood Urea Nitrogen 11 mg/dL (8-23); Carbon Dioxide 23 mEq/L (23-29); Chloride 106 mEq/L (98-107); Eosinophils # 0.1 K/mcL (0.0-0.6); Glucose 106 mg/dL (70-105); Hemoglobin 8.4 g/dL (11.5-15.4); Lymphocytes # 1.3 K/mcL (0.6-4.6); Lymphocytes % 30.4 %; Mean Corpuscular Hemoglobin 20.8 pg (28.0-33.3); Monocytes # 0.4 K/mcL (0.0-1.3); Monocytes % 8.2 %; Neutrophils # 2.5 K/mcL (1.6-8.9); Osmolality,Calculated 288 (280-300); Platelet Count 165 K/mcL (140-400); Potassium 3.9 mEq/L (3.5-5.1); Red Blood Count 4.03 M/mcL (3.82-4.97); Segmented Neutrophils % 57.5 %; Sodium 139 mEq/L (136-145); White Blood Count 4.3 K/mcL (4.3-11.1); eGFR For African Americans > 60 (> 60); eGFR For Non-African Americans > 60 (> 60)
[2018-11-27 07:46] LABS: % Iron Saturation 5 % (15-50); Iron 29 mcg/dL (50-170); Transferrin 409 mg/dL (203-362)
[2018-11-27 07:59] LABS: Thyroid Stimulating Hormone 1.223 mcIU/mL (0.340-5.600)
[2018-11-27 08:09] LABS: Folate 17.3 ng/mL (3.0-16.0)
[2018-11-27 08:10] LABS: Ferritin < 8 ng/mL (10-120)
[2018-11-27 08:17] LABS: Platelet Estimate Slight Decrease (Normal)
[2018-11-27 08:18] LABS: Anisocytosis 1+ (Not Present); Hypochromasia Present (Not Present)
[2018-11-27] MEDS ORDERED: Iron Sucrose Complex 400 MG in 0.9 % Sodium Chloride 250 ML IVPB ONE (08:18)
[2018-11-27] MEDS: Metoprolol XL (24 HR) Succ 25 MG TAB.ER.24H PO SCH (10:39)
[2018-11-27 11:20] VITALS: BP 176/85
--- NOTE | 2018-11-27 11:25 | Discharge Summary ---
- NOTES TO OUTPATIENT PROVIDER Notes to Outpatient Provider: PCP in 5 in 7 days Orders not resulted at time of discharge: Pending orders 11/26/18 16:37 ECG 12 lead ECG [ECG] Stat 11/27/18 07:06 Homocysteine AM 0400 11/28/18 04:00 Complete Blood Count [HEME] AM 0400 Date of Encounter: 11/27/18 Time of Encounter: 11:24 - Discharge Diagnosis (1) Anemia Priority: Primary Status: Acute Assessment and Plan: Severe microcytic anemia. Likely chronic anemia. Pt states she had colonoscopy at [facility] last year and per hospital records showed benign neoplasm. Per report states polyp consistent with hyperplastic polyp. Pt states she has been feeling fatigued since August 2018. Pt is on ASA daily but stool occult blood negative. iron, ferritin, Folate, and vitamin B 12 levels reviewed and consistent with Iron deficiency anemia. 2 units PRBC units of blood ordered in ED. Hgb up from 5.9 to 8.4. Given IV iron as well. Will DC with script for Iron supplements. She reported SOB on admission which is much improved. She is to follow up out pt with PCP at discharge. Qualifiers: Anemia type: iron deficiency Iron deficiency anemia type: unspecified iron deficiency Qualified Code(s): D50.9 - Iron deficiency anemia, unspecified (2) Dyspnea Priority: Secondary Status: Acute Assessment and Plan: Oxygen 2L NC for now. Keep SpO2 > 90% Qualifiers: Dyspnea type: unspecified Qualified Code(s): R06.00 - Dyspnea, unspecified (3) HTN (hypertension) Priority: Secondary Status: Acute Assessment and Plan: BP uncontrolled. Resume home dose Losartan and will increase Metoprolol from 12.5 mg PO BID to 25 mg PO BID at discharge. Follow up out pt with PCP for further management Qualifiers: Qualified Code(s): I10 - Essential (primary) hypertension Hospital course: History of present illness: Dr. Albrecht Ms. Bright is a 73 year old female with past medical history of arthritis, HTN who presents with feeling tired since August 2018. Pt states she is unaware of prior history of iron deficiency anemia. 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 She also states she was anemic during an infection she had at age 57 years old. She denies chest pain but does report feeling SOB. Discharge discussed with: patient - Time Spent with Patient Total time spent providing and/or coordinating discharge services: Time spent: Greater than 30 minutes - Discharge Medications Prescriptions: No Action Metoprolol XL (24 HR) Succ [Toprol Xl] 12.5 mg PO BID Losartan Potassium 25 mg PO DAILY Hydroxyzine HCl 10 mg PO PRN PRN PRN Reason: Anxiety Home Medications: Metoprolol XL (24 HR) Succ [Toprol Xl] 12.5 mg PO BID 06/10/16 [History] Hydroxyzine HCl 10 mg PO PRN PRN 11/26/18 [History] Losartan Potassium 25 mg PO DAILY 11/26/18 [History] Allergies/Adverse Reactions: Allergy/AdvReac Type Severity Reaction Status Date / Time levofloxacin Allergy See Verified 11/26/18 22:04 Comments Date of admission: 11/26/18 18:52 Primary care physician: Vahid Sellers Discharging clinician: Janell Albrecht Anticipated date of discharge: 11/27/18 - Constitutional Vitals: Temp Pulse Resp BP Pulse Ox 98.1 F 96 16 176/85 97 11/27/18 11:19 11/27/18 11:19 11/27/18 11:19 11/27/18 11:19 11/27/18 11:19 General appearance: Present: A&O X 3, no acute distress Exam: . - Head Head exam: Present: atraumatic, normocephalic - Eye Eye exam: Present: PERRL, conjuntiva pink, sclera anicteric Pupils: Present: PERRL - Neck Neck exam general surgery: Present: supple, trachea midline. Absent: lymphadenopathy - Respiratory Respiratory exam: Present: CTAB. Absent: accessory muscle use, rales, rhonchi, wheezes - Cardiovascular Cardiovascular exam: Present: RRR, +S1, +S2. Absent: diastolic murmur, gallop, rubs, systolic murmur - GI/Abdominal GI/Abdominal exam: Present: normal bowel sounds, soft, no peritoneal signs. Absent: distended, tenderness - Extremities Exam Extremities exam: Present: warm, radial pulses palpable and symmetrical. Absent: calf tenderness, cyanotic, pedal edema - Neurological Exam Neurological exam: Present: CN II-XII intact, oriented X3, no focal deficits. Absent: pronater drift, facial droop, speech deficit - Skin Skin exam: Present: dry, intact - Patient Status Disposition: Home, Self-Care Condition: Good Overall status at discharge: patient is progressing back to baseline - Discharge Instructions Follow Up With: Karla Calhoun DO [Primary Care Provider] - - Diet and Activity Activity: increase activity as tolerated Diet: advance to your usual diet - VTE Reasons for not Prescribing Prophylaxis: Not indicated-Anticoagulated or INR therapeutic
--- NOTE | 2018-11-28 05:34 | Electrocardiograph Report ---
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
== END 2018-11-27 14:07 | disposition home or self-care (01) ==
LOC: EMEROOARM 16:12 → 3ANU 16:12
PROVIDERS: ADMIT Internal Medicine Nephrology; ATTEND Internal Medicine Nephrology